=== PATIENT | male | born 1950 | race Caucasian/White ===

== ENCOUNTER 2019-07-24 10:44 | Outpatient (CLI) | payer OTHER ==
--- NOTE | 2019-07-24 13:51 | CT ---
CT CERVICAL SPINE PERFORMED WITHOUT CONTRAST ENHANCEMENT: Date: 07/24/2019 HISTORY: Patient with a history of a right-sided C7 superior articular facet fracture. Complaining of right ar m weakness. Unable to extend right hand. Also with some limited left arm movement. History of previou s brain surgery. COMPARISON: CT of spine performed 03/11/2019. FINDINGS: The vertebral bodies are normal in height. Severe disc narrowing is seen at the C5-6 and C6-7 levels. Changes are similar to what was seen on the previous exam. The right-sided C7 facet fracture is almost completely healed. There is some very faint lucency still seen in this area. Disc space findings are as follows: C2-3: Asymmetric left facet changes associated with some mild left foraminal narrowing. C3-4: No significant canal or foraminal stenosis at this level. C4-5: No canal or foraminal stenosis. C5-6: Posterior osteophytic change is seen at this level. There is some mild left and moderately sev ere right-sided foraminal narrowing. Changes related to uncovertebral and to a lesser extent the face t changes. C6-7: Minimal anterolisthesis is present at this level. Do not appreciate significant canal or isabela inal stenosis. C7-T1: Unremarkable. IMPRESSION: 1. Almost complete healing of the right C7 facet fracture. 2. Moderately severe right foraminal narrowing at C5-6. POS: [facility]
--- NOTE | 2019-07-24 14:20 | MRI ---
MRI OF CERVICAL SPINE PERFORMED WITHOUT CONTRAST ENHANCEMENT: Date: 07/24/2019 HISTORY: Patient with a history of a right C7 facet fracture. Now with neck pain and right arm weakness. COMPARISON: CT examination done earlier today and a CT study of 03/11/2019. FINDINGS: The vertebral bodies appear normal in height. There is severe disc narrowing at C5-6 and mild disc na rrowing at C6-7. There are some marrow edema changes of the right C7 articular facet related to an ar ea of a healing fracture. Cord signal change is normal. C2-3: Unremarkable. C3-4: Disc bulge and facet hypertrophic changes at this level are associated with a moderate degree of canal stenosis. C4-5: There appears to be borderline bilateral foraminal narrowing at this level. No central canal s tenosis. C5-6: Posterior osteophytic change slightly more right-sided at this level. There is moderately rosie re right-sided foraminal narrowing and mild left foraminal stenosis. C6-7: No canal or foraminal stenosis. C7-T1: No significant canal or foraminal narrowing. IMPRESSION: 1. Some residual edema change in the right C7 facet region related to the healing of the fracture. 2. Somewhat asymmetric right disc osteophyte changes at C5-6 with moderately severe right foraminal narrowing. Other areas of foraminal stenosis as described above. POS: [facility]
--- NOTE | 2019-07-24 14:48 | MRI ---
MRI LUMBAR SPINE PERFORMED WITHOUT CONTRAST ENHANCEMENT: Date: 07/24/2019 HISTORY: Low back pain. FINDINGS: The vertebral bodies are normal in height. There is marked disc narrowing at L5-S1. There is a spondy lolisthesis of approximately 10.0 mm with bilateral pars defects. No significant periaortic adenopathy and a T2 hyperintense lesion partially visualized along the late ral aspect of the right can be most likely a cyst. T12-L1: Unremarkable. L1-2: Mild facet hypertrophic changes. No canal or foraminal stenosis. L2-3: Degenerative facet changes without significant canal or foraminal stenosis. L3-4: Once again, degenerative facet changes. No significant canal or foraminal stenosis. L4-5: There is a right paracentral disc protrusion at this level minimally indenting the cord. There is some mild to moderate right foraminal stenosis seen. L5-S1. No central canal stenosis. The spondylolisthesis is associated with moderately severe bilater al foraminal narrowing. IMPRESSION: 1. Right paracentral disc protrusion at L4-5, also with moderate right foraminal narrowing at this l evel. 2. Approximately 10.0 mm of spondylolisthesis of L5 on S1 with moderately severe bilateral foraminal narrowing. POS: [facility]
== END 2019-07-24 10:45 | disposition home or self-care (01) ==
LOC: CT 10:44
PROVIDERS: ATTEND Neurological Surgery
DX: S12.101A Unspecified nondisplaced fracture of second cervical vertebra, initial encounter for closed fracture (principal); M47.12 Other spondylosis with myelopathy, cervical region; M54.2 Cervicalgia; M54.5 Low back pain; M48.02 Spinal stenosis, cervical region; M43.17 Spondylolisthesis, lumbosacral region; M48.07 Spinal stenosis, lumbosacral region; M51.26 Other intervertebral disc displacement, lumbar region; M48.061 Spinal stenosis, lumbar region without neurogenic claudication
CPT/HCPCS: 72125; 72141; 72148